=== PATIENT | male | born 1935 | race Hispanic/Latino ===

== ENCOUNTER → 2020-07-30 | Outpatient (CLI) | payer OTHER ==
--- NOTE | 2020-07-30 11:55 | Diagnostic Imaging Report ---
Renal ultrasound. Clinical History: Renal calculus, history of right nephrectomy per patient. Comparison Study: None available Findings: The right kidney is not visualized. Left kidney is normal in appearance measuring 12.1 cm in length, without evidence of hydronephrosis, nephrolithiasis or renal mas. The echogenicity is normal. The cortical thickness measures 1.4 cm. The bladder is unremarkable. Left ureteral jet is identified. Prevoid volume is 70.7 mL, post void volume 30.9 mL. Prostate was not visible. Impression: Normal left kidney. Signed by: Kimani Mascorro on 07/30/2020 11:52 AM
--- NOTE | 2020-07-30 14:05 | Diagnostic Imaging Report ---
Abdomen, 1 view. History: Kidney stones. Findings: Air is scattered throughout nondilated small and large bowel. There are no masses or abnormal calcifications. 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 IMPRESSION: Non-specific bowel gas pattern. Signed by: Kimani Mascorro on 07/30/2020 2:02 PM
== END ==
LOC: US 10:19
PROVIDERS: ATTEND Urology
DX: N20.0 Calculus of kidney (principal)
CPT/HCPCS: 74018; 76770; 76857

== ENCOUNTER 2020-08-12 07:04 | Observation (INO) | payer OTHER ==
[2020-08-10 09:33] LABS: BASOPHILS # (AUTO) 0.1 (0.0-0.1); BASOPHILS % 0.6 % (0.0-1.0); EOSINOPHILS # (AUTO) 0.1 (0.0-0.4); EOSINOPHILS % 1.5 % (0.0-6.0); HEMATOCRIT 46.1 % (38.2-49.6); HEMOGLOBIN 15.3 g/dL (14.0-18.0); LYMPHOCYTES # (AUTO) 1.7 (1.0-3.2); LYMPHOCYTES % 21.5 % (18.0-39.1); MEAN CORPUSCULAR HEMOGLOBIN 31.2 pg (28-32); MEAN CORPUSCULAR HGB CONC 33.2 g/dL (31-35); MEAN CORPUSCULAR VOLUME 94.1 fL (81-99); MONOCYTES # (AUTO) 0.6 (0.2-0.8); NEUTROPHILS # (AUTO) 5.4 (2.1-6.9); PLATELET COUNT 159 x10e3/uL (140-360); RED CELL DISTRIBUTION WIDTH 14.2 % (11.7-14.4)
[2020-08-10 09:57] LABS: INR 0.96; PROTHROMBIN TIME 13.3 seconds (11.9-14.5)
[2020-08-10 10:18] LABS: ALANINE AMINOTRANSFERASE 12 IU/L (0-55); ALBUMIN 3.6 g/dL (3.5-5.0); ALBUMIN/GLOBULIN RATIO 1.3 (0.8-2.0); ALKALINE PHOSPHATASE 87 IU/L (40-150); ANION GAP 12.7 mmol/L (8-16); BLOOD UREA NITROGEN 24 mg/dL (7-26); BUN/CREATININE RATIO 23 (6-25); CALCIUM 9.4 mg/dL (8.4-10.2); CARBON DIOXIDE 29 mmol/L (22-29); CHLORIDE 106 mmol/L (98-107); CREATININE, SERUM 1.03 mg/dL (0.72-1.25); EST GLOMERULAR FILTRATION RATE > 60 ML/MIN (60-); GLUCOSE 123 mg/dL (74-118); POTASSIUM 3.7 mmol/L (3.5-5.1); SODIUM 144 mmol/L (136-145)
[2020-08-11 19:02] VITALS: BP 127/87
[2020-08-11 19:15] VITALS: BP 131/63
[2020-08-12] VITALS (21 sets, daily range): BP systolic 122–167; BP diastolic 58–88
[~2020-08-12] VITALS: Ht 162.6 cm; Wt 76.7 kg
[2020-08-12] MEDS ORDERED: LISINOPRIL10 MG PO (08:28)
[2020-08-12] MEDS ORDERED: FUROSEMIDE20 MG PO (08:31)
[2020-08-12] MEDS ORDERED: LOVASTATIN40 MG PO (08:31)
[2020-08-12] MEDS ORDERED: POTASSIUM CHLO10 ME1 PO (08:31)
[2020-08-12] MEDS ORDERED: METOLAZONE5 MG PO (08:31)
[2020-08-12] MEDS ORDERED: CARVEDILOL25 MG PO (08:31)
[2020-08-12] MEDS ORDERED: ALLOPURINOL300 MG PO (08:31)
[2020-08-12] MEDS ORDERED: FENTANYL CITRATE/PF 100MCG/2 ML INJ ONE (09:07)
[2020-08-12] MEDS ORDERED: IOPAMIDOL 370 MG/ML 200 ML INFUS..BTL INJ ONE (09:07)
[2020-08-12] MEDS ORDERED: LIDOCAINE HCL 2% LOCAL 20 ML VIAL ONE ×2 (09:07→09:24)
[2020-08-12] MEDS ORDERED: MIDAZOLAM HCL 2 MG/2 ML VIAL ONE ×2 (09:07→10:35)
[2020-08-12] MEDS ORDERED: HEPARIN SOD (PORCINE) 1000 UNIT/ML 30ML ONE (09:07)
[2020-08-12] MEDS ORDERED: HEPARIN SOD/SOD CHLORIDE 2,000 ML ONE (09:07)
[2020-08-12] MEDS ORDERED: SODIUM CHLORIDE 0.9% 1000ML 1,000 ML ONE (09:08)
[2020-08-12] MEDS ORDERED: NITROGLYCERIN/D5W 200 MCG/ML 250 ML ONE (09:08)
[2020-08-12] MEDS ORDERED: ASPIRIN 325 MG TAB ONE (10:51)
[2020-08-12] MEDS ORDERED: TICAGRELOR 90 MG TABLET ONE (10:51)
[2020-08-13] VITALS: BP 133/73
[2020-08-13 04:00] VITALS: BP 156/70
[2020-08-13 04:45] LABS: BASOPHILS % 0.5 % (0.0-1.0); EOSINOPHILS # (AUTO) 0.1 (0.0-0.4); EOSINOPHILS % 1.2 % (0.0-6.0); HEMATOCRIT 41.3 % (38.2-49.6); LYMPHOCYTES # (AUTO) 1.4 (1.0-3.2); LYMPHOCYTES % 15.8 % (18.0-39.1); MEAN CORPUSCULAR HEMOGLOBIN 30.8 pg (28-32); MEAN CORPUSCULAR HGB CONC 33.9 g/dL (31-35); MEAN CORPUSCULAR VOLUME 90.8 fL (81-99); MONOCYTES # (AUTO) 0.6 (0.2-0.8); NEUTROPHILS # (AUTO) 6.5 (2.1-6.9); NEUTROPHILS % 75.1 % (38.7-80.0); PLATELET COUNT 149 x10e3/uL (140-360); RED BLOOD COUNT 4.55 x10e6/uL (4.3-5.7); RED CELL DISTRIBUTION WIDTH 14.1 % (11.7-14.4)
[2020-08-13 05:10] LABS: ANION GAP 14.4 mmol/L (8-16); BLOOD UREA NITROGEN 21 mg/dL (7-26); BUN/CREATININE RATIO 26 (6-25); CARBON DIOXIDE 22 mmol/L (22-29); CHLORIDE 108 mmol/L (98-107); CREATININE, SERUM 0.81 mg/dL (0.72-1.25); EST GLOMERULAR FILTRATION RATE > 60 ML/MIN (60-); GLUCOSE 104 mg/dL (74-118); POTASSIUM 3.4 mmol/L (3.5-5.1); SODIUM 141 mmol/L (136-145)
[2020-08-13 08:08] VITALS: BP 134/60
[2020-08-13 09:00] VITALS: BP 134/60
[2020-08-13 12:00] VITALS: BP 139/74
[2020-08-13] MEDS ORDERED: BRILINTA90 MG PO (15:44)
[2020-08-13] MEDS ORDERED: BRILINTA60 MG (15:44)
[2020-08-13 16:14] VITALS: BP 136/70
== END 2020-08-13 16:38 | disposition home or self-care (01) ==
LOC: CATH LAB 07:04 → CATH LAB V 10:27 → MED/SURG 15:43
PROVIDERS: ADMIT Internal Medicine Cardiovascular Disease; ATTEND Internal Medicine Cardiovascular Disease
DX: I25.110 Atherosclerotic heart disease of native coronary artery with unstable angina pectoris (principal); I25.710 Atherosclerosis of autologous vein coronary artery bypass graft(s) with unstable angina pectoris; Z95.1 Presence of aortocoronary bypass graft; Z95.5 Presence of coronary angioplasty implant and graft; I10 Essential (primary) hypertension; E78.00 Pure hypercholesterolemia, unspecified; Z20.828 Contact with and (suspected) exposure to other viral communicable diseases
CPT/HCPCS: 93459; C9600; 36415; 80048; 80053; 85025; 85610; 92928; 99152; 99153; C1725; C1769; C1874; C1887; G0378; J1644; J2001; J2250; J3010; J7030; Q9967; U0002

== ENCOUNTER 2020-09-22 11:06 | Inpatient (IN) | payer MEDICARE ==
[~2020-09-22] VITALS: Ht 162.6 cm; Wt 85.0 kg
[~2020-09-22 11:06] MED LIST: ALLOPURINOL300 MG PO; BRILINTA60 MG; BRILINTA90 MG PO; CARVEDILOL25 MG PO; FUROSEMIDE20 MG PO; LISINOPRIL10 MG PO; LOVASTATIN40 MG PO; METOLAZONE5 MG PO; POTASSIUM CHLO10 ME1 PO
[2020-09-22 11:58] LABS: BASOPHILS % 0.2 % (0.0-1.0); HEMATOCRIT 44.3 % (38.2-49.6); HEMOGLOBIN 15.4 g/dL (14.0-18.0); LYMPHOCYTES # (AUTO) 0.4 (1.0-3.2); LYMPHOCYTES % 3.6 % (18.0-39.1); MEAN CORPUSCULAR HEMOGLOBIN 30.9 pg (28-32); MEAN CORPUSCULAR HGB CONC 34.8 g/dL (31-35); MONOCYTES # (AUTO) 0.7 (0.2-0.8); MONOCYTES % 5.5 % (4.4-11.3); NEUTROPHILS # (AUTO) 10.8 (2.1-6.9); NEUTROPHILS % 90.2 % (38.7-80.0); PLATELET COUNT 158 x10e3/uL (140-360); RED BLOOD COUNT 4.98 x10e6/uL (4.3-5.7)
[2020-09-22 12:12] LABS: PARTIAL THROMBOPLASTIN TIME 23.5 seconds (23.8-35.5); PROTHROMBIN TIME 13.8 seconds (11.9-14.5)
[2020-09-22 12:19] LABS: ALBUMIN 2.3 g/dL (3.5-5.0); ALBUMIN/GLOBULIN RATIO 0.7 (0.8-2.0); ANION GAP 18.3 mmol/L (8-16); CALCIUM 9.4 mg/dL (8.4-10.2); CREATININE, SERUM 1.21 mg/dL (0.72-1.25); MAGNESIUM 1.3 MG/DL (1.3-2.1); POTASSIUM 4.3 mmol/L (3.5-5.1)
[2020-09-22 12:27] LABS: CREATINE KINASE MB 1.7 ng/mL (0-5.0)
[2020-09-22 12:43] LABS: LYMPHOCYTES % (MANUAL) 11 % (19-48); MONOCYTES % (MANUAL) 4 % (3.4-9.0); NEUTROPHILS % (MANUAL) 85 % (40-74); PLATELET ESTIMATE ADEQUATE; POLYCHROMASIA FEW; RBC MORPHOLOGY COMMENT NORMAL
[2020-09-22] MEDS: CEFTRIAXONE SOD 1 GM/NS 50 ML 50 ML IV SCH (14:15)
[2020-09-22] MEDS ORDERED: DEXAMETHASONE SOD PHOS 10 MG/1 ML VIAL IV ONE (14:15)
[2020-09-22] MEDS: AZITHROMYCIN 500MG/NS 250 ML 250 ML IV SCH (14:54)
[2020-09-22] MEDS ORDERED: CARVEDILOL 12.5 MG PO SCH (17:00)
[2020-09-22] MEDS ORDERED: ACETAMINOPHEN 325 MG TAB PO PRN (17:00)
[2020-09-22] MEDS: TICAGRELOR 90 MG TABLET PO SCH (18:48)
[2020-09-22] MEDS: ENOXAPARIN SOD INJ 40 MG/0.4 ML SYR SC SCH (18:48)
[2020-09-22] MEDS: CARVEDILOL 12.5 MG TAB PO SCH (18:48)
[2020-09-22] MEDS ORDERED: ZOLPIDEM TARTRATE 5 MG TAB PO PRN (21:00)
[2020-09-22] MEDS ORDERED: DEXTROSE 50% SYRINGE 50 ML IV PRN (22:15)
[2020-09-23 00:29] LABS: CREATINE KINASE MB 1.9 ng/mL (0-5.0)
[2020-09-23 06:12] LABS: BASOPHILS % 0.1 % (0.0-1.0); HEMATOCRIT 43.7 % (38.2-49.6); HEMOGLOBIN 14.5 g/dL (14.0-18.0); LYMPHOCYTES # (AUTO) 0.3 (1.0-3.2); LYMPHOCYTES % 2.1 % (18.0-39.1); MEAN CORPUSCULAR HEMOGLOBIN 30.5 pg (28-32); MEAN CORPUSCULAR HGB CONC 33.2 g/dL (31-35); MEAN CORPUSCULAR VOLUME 91.8 fL (81-99); MONOCYTES # (AUTO) 0.5 (0.2-0.8); NEUTROPHILS # (AUTO) 11.3 (2.1-6.9); NEUTROPHILS % 93.3 % (38.7-80.0); PLATELET COUNT 153 x10e3/uL (140-360); RED BLOOD COUNT 4.76 x10e6/uL (4.3-5.7); RED CELL DISTRIBUTION WIDTH 13.9 % (11.7-14.4)
[2020-09-23 06:30] LABS: CREATINE KINASE MB 2.4 ng/mL (0-5.0)
[2020-09-23] MEDS: POTASSIUM CHLORIDE 10MEQ EA PO SCH (06:46)
[2020-09-23 06:49] LABS: ALANINE AMINOTRANSFERASE 28 IU/L (0-55); ALBUMIN 2.1 g/dL (3.5-5.0); ALBUMIN/GLOBULIN RATIO 0.6 (0.8-2.0); ALKALINE PHOSPHATASE 83 IU/L (40-150); ANION GAP 16.1 mmol/L (8-16); BLOOD UREA NITROGEN 45 mg/dL (7-26); BUN/CREATININE RATIO 41 (6-25); CALCIUM 9.2 mg/dL (8.4-10.2); CARBON DIOXIDE 23 mmol/L (22-29); CHLORIDE 105 mmol/L (98-107); CREATININE, SERUM 1.11 mg/dL (0.72-1.25); EST GLOMERULAR FILTRATION RATE > 60 ML/MIN (60-); GLUCOSE 355 mg/dL (74-118); POTASSIUM 4.1 mmol/L (3.5-5.1); SODIUM 140 mmol/L (136-145)
[2020-09-23 07:09] LABS: CHOL/HDL RATIO 4.2 (3.9-4.7)
[2020-09-23 07:24] LABS: THYROID STIMULATING HORMONE 0.183 uIU/mL (0.350-4.940)
[2020-09-23] MEDS: INSULIN LISPRO 100 UNIT/1 ML 3ML VIAL SQ SCH ×4 (07:37→20:50)
[2020-09-23] MEDS: FAMOTIDINE 20 MG TAB PO SCH ×2 (07:37→17:34)
[2020-09-23] MEDS: ALLOPURINOL 300 MG TAB PO SCH (08:46)
[2020-09-23] MEDS: TICAGRELOR 90 MG TABLET PO SCH ×2 (08:47→17:34)
[2020-09-23] MEDS: CARVEDILOL 12.5 MG TAB PO SCH ×2 (08:48→17:34)
[2020-09-23] MEDS: ZINC SULFATE 220 MG CAP PO SCH (08:49)
[2020-09-23] MEDS: ASCORBIC ACID 500 MG TAB PO SCH ×2 (08:49→17:34)
[2020-09-23] MEDS: CHOLECALCIFEROL 1,000 UNIT TAB PO SCH (08:50)
[2020-09-23] MEDS: DEXAMETHASONE SOD PHOS 10 MG/1 ML VIAL IV SCH (08:54)
[2020-09-23] MEDS: FUROSEMIDE INJ 10 MG/ML 2 ML VIAL IV SCH ×2 (08:57→17:34)
[2020-09-23] MEDS: ASPIRIN 81 MG CHEW TAB PO SCH (08:59)
[2020-09-23 14:24] VITALS: BP 123/66
[2020-09-23 14:29] VITALS: BP 123/66
[2020-09-23] MEDS ORDERED: SODIUM CHLORIDE 0.9% 250ML 250 ML ONE (14:45)
[2020-09-23] MEDS: CEFTRIAXONE SOD 1 GM/NS 50 ML 50 ML IV SCH (14:56)
[2020-09-23 15:15] LABS: CREATINE KINASE MB 1.8 ng/mL (0-5.0)
[2020-09-23] MEDS: AZITHROMYCIN 500MG/NS 250 ML 250 ML IV SCH (15:38)
[2020-09-23] MEDS: ENOXAPARIN SOD INJ 40 MG/0.4 ML SYR SC SCH (17:34)
[2020-09-23] MEDS: SIMVASTATIN 40 MG TAB PO SCH (19:30)
[2020-09-23 19:55] VITALS: BP 136/69
[2020-09-23 21:00] VITALS: BP 136/69
[2020-09-24] VITALS (10 sets, daily range): BP systolic 96–141; BP diastolic 51–110
[2020-09-24] MEDS ORDERED: METOPROLOL TARTRATE INJ 1 MG/ML VIAL IV STA (02:18)
[2020-09-24] MEDS ORDERED: METOPROLOL TARTRATE INJ 1 MG/ML VIAL ONE (02:26)
[2020-09-24] MEDS ORDERED: METOPROLOL TARTRATE INJ 1 MG/ML VIAL IV ONE (04:45)
[2020-09-24] MEDS ORDERED: ADENOSINE 6 MG/2 ML VIAL IV ONE ×3 (04:45→05:15)
[2020-09-24] MEDS ORDERED: ADENOSINE 6MG/2ML 1 ML ONE (04:55)
[2020-09-24] MEDS ORDERED: SODIUM CHLORIDE 0.9% 500ML 500 ML ONE (05:20)
[2020-09-24] MEDS ORDERED: DILTIAZEM HCL VIAL 5 ML ONE (05:43)
[2020-09-24] MEDS: POTASSIUM CHLORIDE 10MEQ EA PO SCH (05:58)
[2020-09-24 07:53] LABS: BASOPHILS % 0.2 % (0.0-1.0); HEMATOCRIT 42.5 % (38.2-49.6); HEMOGLOBIN 14.4 g/dL (14.0-18.0); LYMPHOCYTES # (AUTO) 0.3 (1.0-3.2); LYMPHOCYTES % 2.5 % (18.0-39.1); MEAN CORPUSCULAR HEMOGLOBIN 30.7 pg (28-32); MEAN CORPUSCULAR HGB CONC 33.9 g/dL (31-35); MEAN CORPUSCULAR VOLUME 90.6 fL (81-99); MONOCYTES # (AUTO) 0.4 (0.2-0.8); MONOCYTES % 3.4 % (4.4-11.3); NEUTROPHILS # (AUTO) 11.3 (2.1-6.9); NEUTROPHILS % 93.1 % (38.7-80.0); PLATELET COUNT 167 x10e3/uL (140-360); RED BLOOD COUNT 4.69 x10e6/uL (4.3-5.7); RED CELL DISTRIBUTION WIDTH 14.2 % (11.7-14.4)
[2020-09-24 08:17] LABS: ANION GAP 18.6 mmol/L (8-16); BLOOD UREA NITROGEN 47 mg/dL (7-26); BUN/CREATININE RATIO 43 (6-25); CALCIUM 8.6 mg/dL (8.4-10.2); CARBON DIOXIDE 21 mmol/L (22-29); CHLORIDE 106 mmol/L (98-107); CREATININE, SERUM 1.09 mg/dL (0.72-1.25); EST GLOMERULAR FILTRATION RATE > 60 ML/MIN (60-); GLUCOSE 234 mg/dL (74-118); POTASSIUM 3.6 mmol/L (3.5-5.1); SODIUM 142 mmol/L (136-145)
[2020-09-24] MEDS: DEXAMETHASONE SOD PHOS 10 MG/1 ML VIAL IV SCH (09:16)
[2020-09-24] MEDS: ASCORBIC ACID 500 MG TAB PO SCH ×2 (09:16→17:42)
[2020-09-24] MEDS: FUROSEMIDE INJ 10 MG/ML 2 ML VIAL IV SCH ×2 (09:16→17:41)
[2020-09-24] MEDS: FAMOTIDINE 20 MG TAB PO SCH ×2 (09:16→17:41)
[2020-09-24] MEDS: CHOLECALCIFEROL 1,000 UNIT TAB PO SCH (09:16)
[2020-09-24] MEDS: TICAGRELOR 90 MG TABLET PO SCH ×2 (09:16→17:41)
[2020-09-24] MEDS: ASPIRIN 81 MG CHEW TAB PO SCH (09:16)
[2020-09-24] MEDS: ALLOPURINOL 300 MG TAB PO SCH (09:16)
[2020-09-24] MEDS: ZINC SULFATE 220 MG CAP PO SCH (09:16)
[2020-09-24] MEDS: CARVEDILOL 12.5 MG TAB PO SCH ×2 (09:17→17:42)
[2020-09-24] MEDS: INSULIN LISPRO 100 UNIT/1 ML 3ML VIAL SQ SCH ×4 (09:18→21:00)
[2020-09-24] MEDS: CEFTRIAXONE SOD 1 GM/NS 50 ML 50 ML IV SCH (14:15)
[2020-09-24] MEDS: AZITHROMYCIN 500MG/NS 250 ML 250 ML IV SCH (14:16)
[2020-09-24] MEDS ORDERED: SODIUM CHLORIDE 0.9% 250ML 250 ML ONE (14:22)
[2020-09-24] MEDS: ENOXAPARIN INJ 80 MG/0.8 ML SYR SC SCH (17:42)
[2020-09-24] MEDS: SIMVASTATIN 40 MG TAB PO SCH (21:37)
[2020-09-25] VITALS (11 sets, daily range): BP systolic 75–128; BP diastolic 47–69
[2020-09-25] MEDS: ENOXAPARIN INJ 80 MG/0.8 ML SYR SC SCH ×2 (06:32→17:05)
[2020-09-25] MEDS: POTASSIUM CHLORIDE 10MEQ EA PO SCH (06:32)
[2020-09-25] MEDS: INSULIN LISPRO 100 UNIT/1 ML 3ML VIAL SQ SCH ×4 (08:35→20:35)
[2020-09-25] MEDS: ZINC SULFATE 220 MG CAP PO SCH (08:40)
[2020-09-25] MEDS: ASCORBIC ACID 500 MG TAB PO SCH ×2 (08:40→16:54)
[2020-09-25] MEDS: ALLOPURINOL 300 MG TAB PO SCH (08:40)
[2020-09-25] MEDS: ASPIRIN 81 MG CHEW TAB PO SCH (08:40)
[2020-09-25] MEDS: DEXAMETHASONE SOD PHOS 10 MG/1 ML VIAL IV SCH (08:40)
[2020-09-25] MEDS: TICAGRELOR 90 MG TABLET PO SCH ×2 (08:40→16:54)
[2020-09-25] MEDS: CARVEDILOL 12.5 MG TAB PO SCH (08:40)
[2020-09-25] MEDS: FUROSEMIDE INJ 10 MG/ML 2 ML VIAL IV SCH (08:40)
[2020-09-25] MEDS: FAMOTIDINE 20 MG TAB PO SCH ×2 (08:40→16:54)
[2020-09-25] MEDS: CHOLECALCIFEROL 1,000 UNIT TAB PO SCH (08:40)
[2020-09-25] MEDS ORDERED: LACTATED RINGER'S 500 ML INJ ONE ×2 (12:15→19:15)
[2020-09-25] MEDS: PIPER-TAZ 3.375 GM 50 ML IV SCH ×2 (14:52→21:07)
[2020-09-25] MEDS ORDERED: CLOPIDOGREL BISULFATE 75 MG TAB PO SCH (16:15)
[2020-09-25] MEDS: CARVEDILOL 3.125 MG TAB PO SCH (16:54)
[2020-09-25] MEDS: FENTANYL 2000MCG/NS 250 250 ML IV SCH (18:00)
[2020-09-25] MEDS: MIDAZOLAM HCL 5MG/ML 10ML VIAL 100 ML IV SCH (18:00)
[2020-09-25] MEDS ORDERED: NOREPINEPHRINE 8 MG/D5W 250 ML 250 ML ONE (18:59)
[2020-09-25] MEDS ORDERED: EPINEPHRINE HCL SYRINGE ONE (19:00)
[2020-09-25] MEDS ORDERED: LACTASE 3,000 UNIT TAB ONE (19:03)
[2020-09-25] MEDS: SIMVASTATIN 40 MG TAB PO SCH (20:34)
[2020-09-25] MEDS: NOREPINEPHRINE 8 MG/D5W 250 ML 250 ML IV PRN (23:20)
[2020-09-26] VITALS (23 sets, daily range): BP systolic 81–142; BP diastolic 43–76
[2020-09-26 00:05] LABS: ABG HCO3 22 mmol/L (22-26); ABG PCO2 35 mmHg (35-45); ABG PO2 61 mmHg (80-105); ABG TCO2 23
[2020-09-26 01:24] LABS: ABG HCO3 22 mmol/L (22-26); ABG PCO2 35 mmHg (35-45); ABG PO2 61 mmHg (80-105); ABG TCO2 23
[2020-09-26] MEDS ORDERED: SODIUM CHLORIDE 0.9% 500ML 500 ML ONE (04:43)
[2020-09-26] MEDS: ENOXAPARIN INJ 80 MG/0.8 ML SYR SC SCH (05:04)
[2020-09-26 05:33] LABS: BASOPHILS % 0.2 % (0.0-1.0); HEMATOCRIT 41.7 % (38.2-49.6); HEMOGLOBIN 14.2 g/dL (14.0-18.0); LYMPHOCYTES # (AUTO) 0.4 (1.0-3.2); MEAN CORPUSCULAR HEMOGLOBIN 30.9 pg (28-32); MEAN CORPUSCULAR HGB CONC 34.1 g/dL (31-35); MEAN CORPUSCULAR VOLUME 90.7 fL (81-99); MONOCYTES # (AUTO) 0.5 (0.2-0.8); MONOCYTES % 2.8 % (4.4-11.3); NEUTROPHILS # (AUTO) 16.9 (2.1-6.9); NEUTROPHILS % 94.1 % (38.7-80.0); PLATELET COUNT 274 x10e3/uL (140-360); RED CELL DISTRIBUTION WIDTH 14.6 % (11.7-14.4)
[2020-09-26 05:58] LABS: ALBUMIN 1.5 g/dL (3.5-5.0); ALBUMIN/GLOBULIN RATIO 0.5 (0.8-2.0); ANION GAP 22.8 mmol/L (8-16); CREATININE, SERUM 2.02 mg/dL (0.72-1.25); POTASSIUM 3.8 mmol/L (3.5-5.1)
[2020-09-26] MEDS: PIPER-TAZ 3.375 GM 50 ML IV SCH (06:29)
[2020-09-26] MEDS: POTASSIUM CHLORIDE 10MEQ EA PO SCH (06:29)
[2020-09-26] MEDS ORDERED: LACTATED RINGER'S 1,000 ML ONE (07:37)
[2020-09-26 07:54] LABS: ABG HCO3 17 mmol/L (22-26); ABG PCO2 33 mmHg (35-45); ABG PH 7.34 (7.35-7.45); ABG PO2 69 mmHg (80-105); ABG TCO2 19
[2020-09-26] MEDS: CARVEDILOL 3.125 MG TAB PO SCH ×2 (09:00→14:39)
[2020-09-26] MEDS ORDERED: INSULIN GLARGINE 100 UNITS/ML VIAL SQ ONE (09:30)
[2020-09-26] MEDS: TICAGRELOR 90 MG TABLET PO SCH ×2 (09:47→14:40)
[2020-09-26] MEDS: FAMOTIDINE 20 MG TAB PO SCH ×2 (09:47→14:40)
[2020-09-26] MEDS: ASPIRIN 81 MG CHEW TAB PO SCH (09:47)
[2020-09-26] MEDS: ZINC SULFATE 220 MG CAP PO SCH (09:47)
[2020-09-26] MEDS: DEXAMETHASONE SOD PHOS 10 MG/1 ML VIAL IV SCH (09:47)
[2020-09-26] MEDS: ALLOPURINOL 300 MG TAB PO SCH (09:47)
[2020-09-26] MEDS: ASCORBIC ACID 500 MG TAB PO SCH ×2 (09:47→14:39)
[2020-09-26] MEDS: CHOLECALCIFEROL 1,000 UNIT TAB PO SCH (09:47)
[2020-09-26] MEDS: PHENYLEPHRINE 10MG/ML VIAL 40 MG in DEXTROSE 5% 250ML 246 ML IV SCH ×2 (09:48→19:35)
[2020-09-26 11:17] LABS: BASOPHILS % 0.2 % (0.0-1.0); HEMATOCRIT 41.4 % (38.2-49.6); HEMOGLOBIN 13.8 g/dL (14.0-18.0); LYMPHOCYTES # (AUTO) 0.4 (1.0-3.2); LYMPHOCYTES % 2.6 % (18.0-39.1); MEAN CORPUSCULAR HEMOGLOBIN 30.5 pg (28-32); MEAN CORPUSCULAR HGB CONC 33.3 g/dL (31-35); MEAN CORPUSCULAR VOLUME 91.6 fL (81-99); MONOCYTES # (AUTO) 0.4 (0.2-0.8); MONOCYTES % 2.2 % (4.4-11.3); NEUTROPHILS # (AUTO) 15.7 (2.1-6.9); NEUTROPHILS % 94.2 % (38.7-80.0); PLATELET COUNT 267 x10e3/uL (140-360); RED BLOOD COUNT 4.52 x10e6/uL (4.3-5.7); RED CELL DISTRIBUTION WIDTH 14.8 % (11.7-14.4)
[2020-09-26] MEDS: INSULIN LISPRO 100 UNIT/1 ML 3ML VIAL SQ SCH ×2 (14:41→19:06)
[2020-09-26] MEDS: MEROPENEM 1GRAM 1 GM in SODIUM CHLORIDE 0.9% 100 ML 100 ML IV SCH ×2 (15:00→21:00)
[2020-09-26] MEDS: VANCOMYCIN 750MG/NS 150ML IVPB 150 ML IV SCH (15:00)
[2020-09-26] MEDS ORDERED: ENOXAPARIN INJ 80 MG/0.8 ML SYR SC SCH (17:00)
[2020-09-26] MEDS: FENTANYL 2000MCG/NS 250 250 ML IV SCH (18:00)
[2020-09-26] MEDS: MIDAZOLAM HCL 5MG/ML 10ML VIAL 100 ML IV SCH (18:00)
[2020-09-26] MEDS: INSULIN GLARGINE 100 UNITS/ML VIAL SQ SCH (20:10)
[2020-09-26] MEDS: SIMVASTATIN 40 MG TAB PO SCH (20:21)
[2020-09-27] VITALS (27 sets, daily range): BP systolic 100–140; BP diastolic 43–65
[2020-09-27] MEDS: INSULIN LISPRO 100 UNIT/1 ML 3ML VIAL SQ SCH ×5 (00:30→23:57)
[2020-09-27] MEDS: MIDAZOLAM HCL 5MG/ML 10ML VIAL 100 ML IV SCH ×2 (01:14→16:09)
[2020-09-27] MEDS: PHENYLEPHRINE 10MG/ML VIAL 40 MG in DEXTROSE 5% 250ML 246 ML IV SCH ×3 (01:22→15:00)
[2020-09-27] MEDS: NOREPINEPHRINE 8 MG/D5W 250 ML 250 ML IV PRN ×3 (01:23→20:34)
[2020-09-27] MEDS: VASOPRESSIN 60 UNIT in DEXTROSE 5% 50ML 57 ML IV PRN ×2 (01:23→18:09)
[2020-09-27 05:34] LABS: BASOPHILS % 0.1 % (0.0-1.0); HEMATOCRIT 38.5 % (38.2-49.6); HEMOGLOBIN 13.1 g/dL (14.0-18.0); LYMPHOCYTES # (AUTO) 0.6 (1.0-3.2); LYMPHOCYTES % 3.4 % (18.0-39.1); MONOCYTES # (AUTO) 0.7 (0.2-0.8); MONOCYTES % 3.6 % (4.4-11.3); NEUTROPHILS # (AUTO) 16.7 (2.1-6.9); PLATELET COUNT 211 x10e3/uL (140-360); RED BLOOD COUNT 4.23 x10e6/uL (4.3-5.7); RED CELL DISTRIBUTION WIDTH 14.7 % (11.7-14.4)
[2020-09-27 06:01] LABS: MAGNESIUM 1.5 MG/DL (1.3-2.1); PHOSPHORUS 5.6 MG/DL (2.3-4.7)
[2020-09-27 06:31] LABS: ALBUMIN 1.4 g/dL (3.5-5.0); ALBUMIN/GLOBULIN RATIO 0.5 (0.8-2.0); ANION GAP 17.9 mmol/L (8-16); CALCIUM 7.2 mg/dL (8.4-10.2); CREATININE, SERUM 2.93 mg/dL (0.72-1.25); POTASSIUM 3.9 mmol/L (3.5-5.1)
[2020-09-27] MEDS: POTASSIUM CHLORIDE 10MEQ EA PO SCH (06:40)
[2020-09-27] MEDS: FAMOTIDINE 20 MG TAB PO SCH ×2 (08:24→17:47)
[2020-09-27 08:49] LABS: ABG PCO2 35 mmHg (35-45); ABG PH 7.34 (7.35-7.45); ABG PO2 80 mmHg (80-105)
[2020-09-27 08:50] LABS: ABG HCO3 19 mmol/L (22-26); ABG TCO2 20
[2020-09-27] MEDS: MEROPENEM 1GRAM 1 GM in SODIUM CHLORIDE 0.9% 100 ML 100 ML IV SCH ×2 (09:18→21:29)
[2020-09-27] MEDS: DEXAMETHASONE SOD PHOS 10 MG/1 ML VIAL IV SCH (09:18)
[2020-09-27] MEDS: ASPIRIN 81 MG CHEW TAB PO SCH (09:19)
[2020-09-27] MEDS: TICAGRELOR 90 MG TABLET PO SCH ×2 (09:24→17:47)
[2020-09-27] MEDS: CARVEDILOL 3.125 MG TAB PO SCH ×2 (09:25→17:00)
[2020-09-27] MEDS: ZINC SULFATE 220 MG CAP PO SCH (09:26)
[2020-09-27] MEDS: ALLOPURINOL 300 MG TAB PO SCH (09:26)
[2020-09-27] MEDS: ASCORBIC ACID 500 MG TAB PO SCH ×2 (09:26→17:48)
[2020-09-27] MEDS: CHOLECALCIFEROL 1,000 UNIT TAB PO SCH (09:26)
[2020-09-27] MEDS: VANCOMYCIN 750MG/NS 150ML IVPB 150 ML IV SCH (10:03)
[2020-09-27] MEDS: FENTANYL 2000MCG/NS 250 250 ML IV SCH (11:11)
[2020-09-27] MEDS: SIMVASTATIN 40 MG TAB PO SCH (21:30)
[2020-09-27] MEDS ORDERED: ATROPINE SULFATE 1 MG/ML VIAL IV PRN (22:00)
[2020-09-27] MEDS: INSULIN GLARGINE 100 UNITS/ML VIAL SQ SCH (22:02)
[2020-09-27] MEDS ORDERED: ATROPINE SULFATE 0.1 MG/ML 10ML SYR ONE (22:36)
[2020-09-28] VITALS (25 sets, daily range): BP systolic 104–152; BP diastolic 42–58
[2020-09-28 06:11] LABS: BASOPHILS % 0.2 % (0.0-1.0); HEMATOCRIT 35.5 % (38.2-49.6); HEMOGLOBIN 12.2 g/dL (14.0-18.0); LYMPHOCYTES # (AUTO) 0.4 (1.0-3.2); LYMPHOCYTES % 2.1 % (18.0-39.1); MEAN CORPUSCULAR HEMOGLOBIN 30.8 pg (28-32); MEAN CORPUSCULAR HGB CONC 34.4 g/dL (31-35); MEAN CORPUSCULAR VOLUME 89.6 fL (81-99); MONOCYTES # (AUTO) 0.9 (0.2-0.8); MONOCYTES % 5.4 % (4.4-11.3); NEUTROPHILS # (AUTO) 15.6 (2.1-6.9); NEUTROPHILS % 91.4 % (38.7-80.0); PLATELET COUNT 168 x10e3/uL (140-360); RED BLOOD COUNT 3.96 x10e6/uL (4.3-5.7); RED CELL DISTRIBUTION WIDTH 14.4 % (11.7-14.4)
[2020-09-28] MEDS: INSULIN LISPRO 100 UNIT/1 ML 3ML VIAL SQ SCH ×3 (06:22→17:07)
[2020-09-28 06:47] LABS: ALBUMIN 1.5 g/dL (3.5-5.0); ALBUMIN/GLOBULIN RATIO 0.6 (0.8-2.0); ANION GAP 17.5 mmol/L (8-16); CALCIUM 7.2 mg/dL (8.4-10.2); CREATININE, SERUM 2.32 mg/dL (0.72-1.25); POTASSIUM 3.5 mmol/L (3.5-5.1)
[2020-09-28] MEDS: POTASSIUM CHLORIDE 10MEQ EA PO SCH (06:51)
[2020-09-28] MEDS: MIDAZOLAM HCL 5MG/ML 10ML VIAL 100 ML IV SCH ×2 (07:13→19:41)
[2020-09-28] MEDS: FENTANYL 2000MCG/NS 250 250 ML IV SCH (07:14)
[2020-09-28] MEDS: DEXAMETHASONE SOD PHOS 10 MG/1 ML VIAL IV SCH (08:26)
[2020-09-28] MEDS: ASPIRIN 81 MG CHEW TAB PO SCH (08:26)
[2020-09-28] MEDS: VANCOMYCIN 750MG/NS 150ML IVPB 150 ML IV SCH (08:26)
[2020-09-28] MEDS: MEROPENEM 1GRAM 1 GM in SODIUM CHLORIDE 0.9% 100 ML 100 ML IV SCH ×2 (08:26→22:06)
[2020-09-28] MEDS: FAMOTIDINE 20 MG TAB PO SCH ×2 (08:26→17:05)
[2020-09-28] MEDS: ALLOPURINOL 300 MG TAB PO SCH (08:27)
[2020-09-28] MEDS: ZINC SULFATE 220 MG CAP PO SCH (08:27)
[2020-09-28] MEDS: ASCORBIC ACID 500 MG TAB PO SCH ×2 (08:27→17:05)
[2020-09-28] MEDS: CHOLECALCIFEROL 1,000 UNIT TAB PO SCH (08:27)
[2020-09-28] MEDS: TICAGRELOR 90 MG TABLET PO SCH ×2 (08:27→17:05)
[2020-09-28 08:41] LABS: ABG HCO3 19 mmol/L (22-26); ABG PCO2 37 mmHg (35-45); ABG PH 7.34 (7.35-7.45); ABG PO2 114 mmHg (80-105); ABG TCO2 21
[2020-09-28] MEDS: ALBUMIN 25% 25GM 100ML 0.25 GM/ML BTL IV SCH ×2 (10:43→17:05)
[2020-09-28] MEDS: FUROSEMIDE INJ 10 MG/ML 4 ML VIAL IV SCH ×2 (10:44→22:06)
[2020-09-28] MEDS ORDERED: FENTANYL 2,000 MCG/250 ML BAG ONE (14:11)
[2020-09-28] MEDS ORDERED: MIDAZOLAM HCL 5MG/ML 10ML VIAL 100 ML BAG IV ONE (14:11)
[2020-09-28] MEDS: NOREPINEPHRINE 8 MG/D5W 250 ML 250 ML IV PRN (20:00)
[2020-09-28] MEDS: INSULIN GLARGINE 100 UNITS/ML VIAL SQ SCH (21:00)
[2020-09-28] MEDS: SIMVASTATIN 40 MG TAB PO SCH (22:06)
[2020-09-29] VITALS (25 sets, daily range): BP systolic 113–144; BP diastolic 39–58
[2020-09-29] MEDS: INSULIN LISPRO 100 UNIT/1 ML 3ML VIAL SQ SCH ×4 (00:10→18:32)
[2020-09-29] MEDS: ALBUMIN 25% 25GM 100ML 0.25 GM/ML BTL IV SCH (02:07)
[2020-09-29] MEDS: FENTANYL 2000MCG/NS 250 250 ML IV SCH ×2 (02:25→19:25)
[2020-09-29 05:49] LABS: BASOPHILS % 0.1 % (0.0-1.0); HEMATOCRIT 29.5 % (38.2-49.6); HEMOGLOBIN 10.1 g/dL (14.0-18.0); LYMPHOCYTES # (AUTO) 0.2 (1.0-3.2); LYMPHOCYTES % 1.2 % (18.0-39.1); MEAN CORPUSCULAR HEMOGLOBIN 30.9 pg (28-32); MEAN CORPUSCULAR HGB CONC 34.2 g/dL (31-35); MEAN CORPUSCULAR VOLUME 90.2 fL (81-99); MONOCYTES % 6.6 % (4.4-11.3); NEUTROPHILS # (AUTO) 14.2 (2.1-6.9); NEUTROPHILS % 91.1 % (38.7-80.0); PLATELET COUNT 113 x10e3/uL (140-360); RED BLOOD COUNT 3.27 x10e6/uL (4.3-5.7)
[2020-09-29 06:07] LABS: ALBUMIN 2.7 g/dL (3.5-5.0); ALBUMIN/GLOBULIN RATIO 1.2 (0.8-2.0); ANION GAP 18.2 mmol/L (8-16); CALCIUM 7.7 mg/dL (8.4-10.2); CREATININE, SERUM 2.06 mg/dL (0.72-1.25); POTASSIUM 3.2 mmol/L (3.5-5.1)
[2020-09-29] MEDS: POTASSIUM CHLORIDE 10MEQ EA PO SCH (06:19)
[2020-09-29 08:21] LABS: ABG HCO3 23 mmol/L (22-26); ABG PCO2 35 mmHg (35-45); ABG PH 7.43 (7.35-7.45); ABG PO2 131 mmHg (80-105); ABG TCO2 24
[2020-09-29] MEDS: TICAGRELOR 90 MG TABLET PO SCH ×2 (09:05→16:52)
[2020-09-29] MEDS: FAMOTIDINE 20 MG TAB PO SCH ×2 (09:05→16:52)
[2020-09-29] MEDS: DEXAMETHASONE SOD PHOS 10 MG/1 ML VIAL IV SCH (09:05)
[2020-09-29] MEDS: ALLOPURINOL 300 MG TAB PO SCH (09:06)
[2020-09-29] MEDS: ZINC SULFATE 220 MG CAP PO SCH (09:06)
[2020-09-29] MEDS: ASCORBIC ACID 500 MG TAB PO SCH ×2 (09:06→16:52)
[2020-09-29] MEDS: CHOLECALCIFEROL 1,000 UNIT TAB PO SCH (09:06)
[2020-09-29] MEDS: MEROPENEM 1GRAM 1 GM in SODIUM CHLORIDE 0.9% 100 ML 100 ML IV SCH ×2 (09:24→21:21)
[2020-09-29] MEDS: ASPIRIN 81 MG CHEW TAB PO SCH (09:24)
[2020-09-29] MEDS: VANCOMYCIN 750MG/NS 150ML IVPB 150 ML IV SCH (10:10)
[2020-09-29] MEDS: MIDAZOLAM HCL 5MG/ML 10ML VIAL 100 ML IV SCH (19:25)
[2020-09-29] MEDS: SIMVASTATIN 40 MG TAB PO SCH (21:21)
[2020-09-29] MEDS: INSULIN GLARGINE 100 UNITS/ML VIAL SQ SCH (22:54)
[2020-09-30] VITALS (20 sets, daily range): BP systolic 90–135; BP diastolic 33–49
[2020-09-30] MEDS: INSULIN LISPRO 100 UNIT/1 ML 3ML VIAL SQ SCH ×5 (00:20→23:38)
[2020-09-30 05:46] LABS: BASOPHILS % 0.2 % (0.0-1.0); HEMATOCRIT 31.5 % (38.2-49.6); HEMOGLOBIN 10.9 g/dL (14.0-18.0); LYMPHOCYTES # (AUTO) 0.1 (1.0-3.2); LYMPHOCYTES % 0.7 % (18.0-39.1); MEAN CORPUSCULAR HEMOGLOBIN 31.3 pg (28-32); MEAN CORPUSCULAR HGB CONC 34.6 g/dL (31-35); MEAN CORPUSCULAR VOLUME 90.5 fL (81-99); MONOCYTES # (AUTO) 1.1 (0.2-0.8); MONOCYTES % 5.7 % (4.4-11.3); NEUTROPHILS # (AUTO) 16.8 (2.1-6.9); NEUTROPHILS % 91.7 % (38.7-80.0); PLATELET COUNT 115 x10e3/uL (140-360); RED BLOOD COUNT 3.48 x10e6/uL (4.3-5.7); RED CELL DISTRIBUTION WIDTH 14.3 % (11.7-14.4)
[2020-09-30] MEDS ORDERED: KCL 20 MEQ PACKET/ ORAL SOLN NG ONE (06:00)
[2020-09-30 06:04] LABS: ALBUMIN/GLOBULIN RATIO 0.9 (0.8-2.0); ANION GAP 17.7 mmol/L (8-16); CALCIUM 7.5 mg/dL (8.4-10.2); CREATININE, SERUM 1.81 mg/dL (0.72-1.25); POTASSIUM 3.7 mmol/L (3.5-5.1)
[2020-09-30] MEDS: MIDAZOLAM HCL 5MG/ML 10ML VIAL 100 ML IV SCH (06:10)
[2020-09-30] MEDS: FENTANYL 2000MCG/NS 250 250 ML IV SCH (08:04)
[2020-09-30] MEDS: FAMOTIDINE 20 MG TAB PO SCH ×2 (08:23→17:18)
[2020-09-30] MEDS: MEROPENEM 1GRAM 1 GM in SODIUM CHLORIDE 0.9% 100 ML 100 ML IV SCH ×2 (08:23→19:44)
[2020-09-30] MEDS: ASPIRIN 81 MG CHEW TAB PO SCH (08:23)
[2020-09-30] MEDS: VANCOMYCIN 750MG/NS 150ML IVPB 150 ML IV SCH (08:23)
[2020-09-30] MEDS: ASCORBIC ACID 500 MG TAB PO SCH ×2 (08:24→17:18)
[2020-09-30] MEDS: ZINC SULFATE 220 MG CAP PO SCH (08:24)
[2020-09-30] MEDS: CHOLECALCIFEROL 1,000 UNIT TAB PO SCH (08:24)
[2020-09-30] MEDS: ALLOPURINOL 300 MG TAB PO SCH (08:24)
[2020-09-30] MEDS: TICAGRELOR 90 MG TABLET PO SCH ×2 (08:24→17:18)
[2020-09-30 09:02] LABS: ABG HCO3 22 mmol/L (22-26); ABG PCO2 34 mmHg (35-45); ABG PH 7.43 (7.35-7.45); ABG PO2 63 mmHg (80-105); ABG TCO2 23
[2020-09-30] MEDS ORDERED: FENTANYL 2,000 MCG/250 ML BAG ONE (13:19)
[2020-09-30] MEDS ORDERED: MIDAZOLAM HCL 5MG/ML 10ML VIAL 100 ML BAG IV ONE (13:19)
[2020-09-30] MEDS ORDERED: FONDAPARINUX SODIUM 5 MG/0.4 ML SYRINGE SQ SCH (17:00)
[2020-09-30] MEDS ORDERED: SODIUM CHLORIDE 0.9% 1000ML 1,000 ML IV ONE (18:00)
[2020-09-30] MEDS: SIMVASTATIN 40 MG TAB PO SCH (19:44)
[2020-09-30] MEDS: INSULIN GLARGINE 100 UNITS/ML VIAL SQ SCH (20:18)
[2020-10-01] VITALS: BP 114/53
[2020-10-01 01:00] VITALS: BP 106/46
[2020-10-01 02:00] VITALS: BP 91/44
[2020-10-01 03:00] VITALS: BP 110/49
[2020-10-01 05:35] LABS: BASOPHILS # (AUTO) 0.1 (0.0-0.1); BASOPHILS % 0.3 % (0.0-1.0); HEMATOCRIT 39.6 % (38.2-49.6); HEMOGLOBIN 13.3 g/dL (14.0-18.0); LYMPHOCYTES # (AUTO) 0.4 (1.0-3.2); LYMPHOCYTES % 1.8 % (18.0-39.1); MEAN CORPUSCULAR HEMOGLOBIN 30.6 pg (28-32); MEAN CORPUSCULAR HGB CONC 33.6 g/dL (31-35); MEAN CORPUSCULAR VOLUME 91.2 fL (81-99); MONOCYTES # (AUTO) 0.9 (0.2-0.8); MONOCYTES % 3.8 % (4.4-11.3); NEUTROPHILS # (AUTO) 21.4 (2.1-6.9); NEUTROPHILS % 90.8 % (38.7-80.0); PLATELET COUNT 128 x10e3/uL (140-360); RED BLOOD COUNT 4.34 x10e6/uL (4.3-5.7); RED CELL DISTRIBUTION WIDTH 14.7 % (11.7-14.4)
[2020-10-01 06:05] LABS: ALBUMIN 1.7 g/dL (3.5-5.0); ALBUMIN/GLOBULIN RATIO 0.6 (0.8-2.0); ANION GAP 16.3 mmol/L (8-16); CALCIUM 7.7 mg/dL (8.4-10.2); CREATININE, SERUM 2.06 mg/dL (0.72-1.25); POTASSIUM 4.3 mmol/L (3.5-5.1)
[2020-10-01 08:06] LABS: ANISOCYTOSIS SLIGHT; BAND NEUTROPHILS % (MANUAL) 1 %; LYMPHOCYTES % (MANUAL) 1 % (19-48); MYELOCYTES % (MANUAL) 1 % (0-0); NEUTROPHILS % (MANUAL) 95 % (40-74); NUCLEATED RED BLOOD CELLS 1; PLATELET ESTIMATE SLIGHTLY DECREASED; PLATELET MORPHOLOGY COMMENT NORMAL; RBC MORPHOLOGY COMMENT NORMAL
[2020-10-01] MEDS ORDERED: SUCCINYLCHOLINE CHLORIDE 20 MG/ML 10ML VIAL ONE (14:00)
[2020-10-01] MEDS ORDERED: VECURONIUM BROMIDE FOR INJ 20 MG VIAL ONE (14:00)
[2020-10-01] MEDS ORDERED: ETOMIDATE 2 MG/ML 10 ML INJ IV ONE (14:00)
[2020-10-01] MEDS ORDERED: WATER STERILE 10 ML VIAL ONE (14:00)
[2020-10-01] MEDS ORDERED: MIDAZOLAM HCL 2 MG/2 ML VIAL ONE (14:00)
== END 2020-10-01 13:05 | disposition expired | DRG 981 ==
LOC: ER 11:12 → ERHOLD 14:31 → MED/SURG3 09-23 14:21 → IMCU 09-24 04:18 → ICU 09-25 17:26 → COVIDICU 09-26 20:40 → IMCU 10-01 06:00
PROVIDERS: ADMIT Internal Medicine; ATTEND Internal Medicine
PROC: 02HV33Z Insertion of Infusion Device into Superior Vena Cava, Percutaneous Approach (ICD-10-PCS; 2020-09-23)
PROC: 5A1955Z Respiratory Ventilation, Greater than 96 Consecutive Hours (ICD-10-PCS; principal; 2020-09-25)
PROC: 0BH18EZ Insertion of Endotracheal Airway into Trachea, Via Natural or Artificial Opening Endoscopic (ICD-10-PCS; 2020-09-25)
PROC: 03HC3DZ Insertion of Intraluminal Device into Left Radial Artery, Percutaneous Approach (ICD-10-PCS; 2020-09-25)
PROC: 03HB3DZ Insertion of Intraluminal Device into Right Radial Artery, Percutaneous Approach (ICD-10-PCS; 2020-09-25)
DX: U07.1 COVID-19 (principal); J12.82 Pneumonia due to coronavirus disease 2019; R65.21 Severe sepsis with septic shock; A41.9 Sepsis, unspecified organism; I50.33 Acute on chronic diastolic (congestive) heart failure; N17.0 Acute kidney failure with tubular necrosis; J96.01 Acute respiratory failure with hypoxia; J15.9 Unspecified bacterial pneumonia; D62 Acute posthemorrhagic anemia; D68.9 Coagulation defect, unspecified; N17.9 Acute kidney failure, unspecified; S37.39XA Other injury of urethra, initial encounter; E87.2 Acidosis; E83.51 Hypocalcemia; N40.0 Benign prostatic hyperplasia without lower urinary tract symptoms; R35.1 Nocturia; C61 Malignant neoplasm of prostate; N35.919 Unspecified urethral stricture, male, unspecified site; N32.81 Overactive bladder; I25.10 Atherosclerotic heart disease of native coronary artery without angina pectoris; Z95.5 Presence of coronary angioplasty implant and graft; Z95.1 Presence of aortocoronary bypass graft; Z90.5 Acquired absence of kidney; Y84.6 Urinary catheterization as the cause of abnormal reaction of the patient, or of later complication, without mention of misadventure at the time of the procedure; Y73.1 Therapeutic (nonsurgical) and rehabilitative gastroenterology and urology devices associated with adverse incidents; R31.0 Gross hematuria; I48.0 Paroxysmal atrial fibrillation; E88.09 Other disorders of plasma-protein metabolism, not elsewhere classified
CPT/HCPCS: 36415; 36569; 36600; 51700; 71045; 74018; 80048; 80053; 80061; 80202; 82550; 82553; 82607; 82746; 82805; 82948; 83036; 83735; 83880; 84100; 84443; 84484; 85025; 85610; 85730; 86022; 86900; 87040; 93005; 93306; 94003; 96372; 99251; 99285; J0153; J0171; J0330; J0456; J0461; J0696; J1100; J1650; J1940; J2185; J2250; J2370; J2543; J7030; J7040; J7050; J7121; P9047; U0002